=== PATIENT | male | born 1975 | race Caucasian/White ===

== ENCOUNTER 2024-08-16 03:41 | Emergency (ER) | payer BC ==
--- OUTSIDE RECORDS SUMMARY | 2024-08-16 03:45 | XMS REPORT | Continuity of Care Document ---
Author Name Unknown Address [address] [facility] [address] [place] [address] [facility] thconnect Address [address] [facility] [address] [place] [address] Care Team Providers Care Supervisor Data Processing Name Role Phone Micah Cha Attending Clinician Unavailable MEDARDO MERCADO Attending Clinician Unavailab GAMAL Rodriguez Attending Clinician Unavailable LAB90 Attending Clinician Unavailable YONG WOLF Attending Clinician Unavailable EDELMIRA SALGADO Attending Clinician Unavailab LIANET Peralta Attending Clinician Unav ailable RACHANA DAVIS Attending Clinician Unavailable CRYSTAL BLUE Attending Clinician Unava ilable Payers Payer Name Policy Type Policy Number Effective Date Expirati on Date Source BC 2 [id number] 2022 00:00:00 [facility] 6 [id number] 2022 00:00:00 [facility] Problems Condition Name Condition Details Condition Category Status Onset Date Resolution Date Last Treatment Date Treating Clinician Comments Source High 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 [facility]-Dr Bryson Meléndez - Externa jon Stage 3a chronic kidney disease Stage 3a chronic kidney disease Disease Active 2021-10 00:00: 00 Salena Salesold - Externa l Low serum alkaline phosphatas e Low serum alkaline phosphatas e Disease Active 2021-10 00:00: 00 Salena Salesold - Externa l Function kidney decreased Function kidney decreased Disease Active 2021-10 00:00: 00 Salena Salesold - Externa l Hypertrigl yceridemia Hypertrigl yceridemia Disease Active 2021-10 00:00: 00 Salena Salesold - Externa l Type 2 diabetes mellitus without complicati on, without long-term current use of insulin Type 2 diabetes mellitus without complicati on, without long-term current use of insulin Disease Active 2021-10 00:00: 00 Salena Salesold - Externa l Vitamin D deficiency Vitamin D deficiency Disease Active 2021-10 00:00: 00 Salena Seybold - Externa l Anxiety Anxiety Disease Active 2021-10 00:00: 00 Salena Salesold - Externa l GERD (gastroeso phageal reflux disease) GERD (gastroeso phageal reflux disease) Disease Active 2021-10 00:00: 00 Salena Seybold - Externa l DM type 2 with diabetic mixed hyperlipid emia (multi HCC) DM type 2 with diabetic mixed hyperlipid emia (multi HCC) Disease Active 2021-10 00:00: 00 Salena webb Anxiety disorder Anxiety disorder Disease Active 2021-10 00:00: 00 Salena Hoffa jon Mixed hyperlipid emia Mixed hyperlipid emia Disease Active 2021-10 00:00: 00 Salena Hoffa jon Gastroesop hageal reflux disease without esophagiti s Gastroesop hageal reflux disease without esophagiti s Disease Active 2021-10 00:00: 00 Salena Hoffa jon Long-term current use of testostero ne replacemen t therapy Long-term current use of testostero ne replacemen t therapy Disease Active 2021-10 00:00: 00 Salena webb [id number] Mild episode of recurrent major depressive disorder Problem [facility] [id number] Hand tingling Problem [facility] [id number] Hypogonadi sm in male Problem [facility] [id number] Essential hypertensi on Problem [facility] [id number] Type 2 diabetes mellitus with hyperglyce jason, without long-term current use of insulin Problem [facility] Social History Social Habit Start Date Stop Date Quantity Comments Source Gender identity 2022-10-15 08:11:47 Identifies as male gender (finding) Salena Meléndez - External Sexual orientation 2022-10-15 08:11:47 Heterosexual (finding) Salena Meléndez - External History of Tobacco Use [facility] Sex Assigned At [facility] Cigarettes smoked current (pack per day) - Reported 2024-02-18 00:00:00 2024-02-18 00:00:00 Salena Meléndez - External Cigarette pack-years 2024-02-18 00:00:00 2024-02-18 00:00:00 Salena Meléndez - External Alcoholic beverage intake 2024-02-18 00:00:00 2024-02-18 00:00:00 1.71 /d Salena Meléndez - External Tobacco use and exposure 2024-02-18 00:00:00 2024-02-18 00:00:00 Smokeless tobacco non-user Salena Meléndez - External Alcohol intake 2023-11-19 00:00:00 2023-11-19 00:00:00 1.71 /d Salena Meléndez - External History of Social function 2023-07-13 00:00:00 2023-07-13 00:00:00 Salena Meléndez - External Education 2023-07-13 00:00:00 2023-07-13 00:00:00 17 Salena Meléndez - External Alcohol Comment 2023-07-13 00:00:00 2023-07-13 00:00:00 moderately Salena Tomdion - External Smoking Status Start Date Stop Date Source Never Smoker [facility] Former Smoker 2024-03-24 00:00:00 2024-03-24 00:00:00 [facility] Medications Ordered Medication Name Filled Medication Name Start Date Stop Date Current Medication? Ordering Clinician Indication Dosage Frequency Signature (SIG) Comments Components Source Testosteron e Cypionate (DEPO-TESTO STERONE) 200 MG/ML intramuscul ar Solution 05-10 00:00: 00 Yes [id number] 100mg Inject 100 mg into the muscle every 21 days. Salena webb OZEMPIC (0.25 or 0.5 mg/dose) 2 mg/3 mL SQ Solution Pen-Injecto r 04-04 00:00: 00 Yes [id number] 3 .25mg Q1W Inject 0.25 mg into the skin once a week. Salena webb Carvedilol 6.25 MG Carvedilol 6.25 MG 03-24 00:00: 00 No 1{table t_with_ food} BID Carvedilol 6.25 MG Multiple Vitamins-Mi nerals (PreserVisi on AREDS 2) oral Capsule 03 09:02: 41 Yes 2{capsu le} QD Take 2 capsules by mouth daily. Salena webb Fenofibrate Micronized 200 MG oral Capsule 07 00:00: 00 Yes [id number] 200mg Take 1 capsule (200 mg total) by mouth daily. Salena webb Carvedilol 3.125 MG oral Tablet 01-13 00:00: 00 Yes [id number] 3.125mg Take 1 tablet (3.125 mg total) by mouth in the morning and 1 tablet (3.125 mg total) in the evening. Take with meals. Salena webb Multiple Vitamins-Mi nerals (PreserVisi on AREDS 2) oral Capsule 11-19 14:30: 47 Yes 2{capsu le} Take 2 capsules by mouth daily. Salena webb OZEMPIC (0.25 or 0.5 mg/dose) 2 mg/3 mL SQ Solution Pen-Injecto r 11-19 00:00: 00 Yes [id number] 3 .25mg Inject 0.25 mg into the skin once a week. Salena webb Multiple Vitamins-Mi nerals (PreserVisi on AREDS 2) oral Capsule 11-10 11:20: 12 Yes 2{capsu le} Take 2 capsules by mouth daily. Salena webb Testosteron e Cypionate (DEPO-TESTO STERONE) 200 MG/ML intramuscul ar Solution 11-10 00:00: 00 02-17 00:00 :00 No [id number] 100mg Inject 100 mg into the muscle every 14 days. Salena webb Lisinopril 40 MG oral Tablet 10-19 00:00: 00 Yes [id number] 40mg Take 1 tablet (40 mg total) by mouth daily. Salena webb Atorvastati n Calcium 80 MG oral Tablet 10-19 00:00: 00 Yes [id number] 80mg Take 1 tablet (80 mg total) by mouth daily. Salena webb Sertraline HCl 50 MG oral Tablet 10-19 00:00: 00 Yes [id number] 50mg Take 1 tablet (50 mg total) by mouth daily. Salena webb Metformin HCl ER 500 MG oral TABLET SR 24 HR 10-19 00:00: 00 Yes [id number] 3 500mg Take 1 tablet (500 mg total) by mouth daily (with breakfast) . Salena webb OZEMPIC (0.25 or 0.5 mg/dose) 2 mg/3 mL SQ Solution Pen-Injecto r 2022-10 00:00: 00 Yes [id number] 3 .5mg Inject 0.5 mg into the skin once a week. Salena webb Testosteron e Cypionate (DEPO-TESTO STERONE) 200 MG/ML intramuscul ar Solution 2022-10 00:00: 00 11-10 00:00 :00 No [id number] INJECT 100 MG (0.5 ML) INTO THE MUSCLE EVERY 14 DAYS. Salena webb Metformin HCl ER 500 MG oral TABLET SR 24 HR 2022-10 00:00: 00 Yes [id number] 3 500mg Take 1 tablet (500 mg total) by mouth daily (with breakfast) . Salena webb Magnesium 100 MG oral Tablet 2022-10 00:00: 00 Yes [id number] 1{tbl} Take 1 tablet by mouth daily. Salena webb Carvedilol (Coreg) 3.125 MG oral Tablet 2022-10 00:00: 00 Yes [id number] 3.125mg Take 1 tablet (3.125 mg total) by mouth in the morning and 1 tablet (3.125 mg total) in the evening. Take with meals. Salena webb [place]-3 Fatty Acids (Fish Oil) 1000 MG oral Capsule 2022-10 00:00: 00 Yes [id number] 3 1000mg Take 1 capsule (1,000 mg total) by mouth 2 times daily. Salena webb OZEMPIC (0.25 or 0.5 mg/dose) 2 mg/3 mL SQ Solution Pen-Injecto r 2022-10 017 00:00: 00 09-29 05:59 :00 No [id number] 3 .5mg Inject 0.5 mg into the skin once a week. Salena webb Multiple Vitamins-Mi nerals (PreserVisi on AREDS 2) oral Capsule 07-13 15:51: 47 Yes 2{capsu le} Take 2 capsules by mouth daily. Salena webb OZEMPIC (0.25 or 0.5 mg/dose) 2 mg/3 mL SQ Solution Pen-Injecto r -18 00:00: 00 08-31 05:59 :00 No [id number] 3 .5mg Inject 0.5 mg into the skin once a week. Salena webb Testosteron e Cypionate (DEPO-TESTO STERONE) 200 MG/ML intramuscul ar Solution -16 00:00: 00 Yes INJECT 100 MG (0.5 ML) INTO THE MUSCLE EVERY 14 DAYS Salena webb Testosteron e Cypionate 200 MG/ML injection Solution -13 00:00: 00 07-13 00:00 :00 No [id number] 101 100mg Inject 100 mg into the muscle every 14 days Salena webb Benzonatate (Tessalon Perles) 100 MG oral Capsule 05-04 00:00: 00 Yes [id number] 100mg [id number] 3D Take 1 capsule (100 mg total) by mouth 3 times daily as needed for cough Salena webb Guaifenesin (Mucinex) 600 MG oral Tablet 12 Hour Sustained Release 05-04 00:00: 00 Yes [id number] 1200mg Take 2 tablets (1,200 mg total) by mouth 2 times daily Salena webb OZEMPIC (0.25 or 0.5 mg/dose) 2 mg/3 mL SQ Solution Pen-Injecto r 6-30 00:00: 00 06-12 04:59 :00 No [id number] 3 .5mg Inject 0.5 mg into the skin once a week Salena webb Testosteron e Cypionate 200 MG/ML injection Solution 19 00:00: 00 Yes [id number] 101 100mg Inject 100 mg into the muscle every 14 days Salena webb OZEMPIC (0.25 or 0.5 mg/dose) 2 mg/3 mL SQ Solution Pen-Injecto r 19 00:00: 00 05-01 04:59 :00 No [id number] 3 .25mg Inject 0.25 mg into the skin once a week Salena webb Testosteron e Cypionate (DEPO-TESTO STERONE) 200 MG/ML intramuscul ar Solution 18 00:00: 00 03-05 00:00 :00 No [id number] 101 INJECT 1ML INTRAMUSCU LARLY DIRECTED EVERY 14 DAYS Salena webb Testosteron e Cypionate 200 MG/ML injection Solution -16 00:00: 00 Yes [id number] 101 200mg Inject 200 mg as directed every 14 days Salena webb Fenofibrate 160 MG oral Tablet 4-06 00:00: 00 Yes [id number] TAKE 1 TABLET BY MOUTH EVERY DAY Salena webb [place]-3 Fatty Acids 1000 MG oral Capsule 3-06 00:00: 00 07-13 00:00 :00 No [id number] 2000mg Take 2 capsules (2,000 mg total) by mouth 2 times daily Salena webb Sitagliptin Phosphate (Januvia) 100 MG oral Tablet 1-10 00:00: 00 03-05 00:00 :00 No [id number] 100mg Take 1 tablet (100 mg total) by mouth daily Salena webb OZEMPIC (0.25 or 0.5 mg/dose) 2 mg/1.5 mL SQ Solution Pen-Injecto r 1-10 00:00: 00 03-05 00:00 :00 No [id number] .25mg Inject 0.25 mg into the skin once a week Salena webb Vitamin D, Ergocalcife rol, 1.25 MG (29621 UT) oral Capsule 1-08 00:00: 00 07-13 00:00 :00 No [id number] 82423I Take 1 capsule (50,000 units total) by mouth once a week Salena webb Testosteron e Cypionate 200 MG/ML injection Solution 10-23 09:51: 13 10-23 00:00 :00 No [id number] 101 200mg Inject 200 mg as directed every 14 days Salena webb Lisinopril 40 MG oral Tablet 10-23 09:51: 13 10-23 00:00 :00 No [id number] 40mg Take 40 mg by mouth daily Salena webb Sitagliptin Phosphate 50 MG oral Tablet 10-23 09:51: 13 10-23 00:00 :00 No [id number] 100mg Take 100 mg by mouth daily Salena webb Atorvastati n Calcium 80 MG oral Tablet 10-23 09:51: 13 10-23 00:00 :00 No [id number] 80mg Take 80 mg by mouth daily Salena webb Sertraline HCl 50 MG oral Tablet 10-23 09:51: 13 10-23 00:00 :00 No [id number] 50mg Take 50 mg by mouth daily Salena webb Metformin HCl ER 500 MG oral TABLET SR 24 HR 10-23 09:51: 13 10-23 00:00 :00 No [id number] 1000mg Take 1,000 mg by mouth daily (with breakfast) Salena webb Fenofibrate 160 MG oral Tablet 10-23 00:00: 00 Yes [id number] 160mg Take 1 tablet (160 mg total) by mouth daily Salena webb Lisinopril 40 MG oral Tablet 10-23 00:00: 00 Yes [id number] 40mg Take 1 tablet (40 mg total) by mouth daily Salena webb Atorvastati n Calcium 80 MG oral Tablet 10-23 00:00: 00 Yes [id number] 80mg Take 1 tablet (80 mg total) by mouth daily Salena webb Sertraline HCl 50 MG oral Tablet 10-23 00:00: 00 Yes [id number] 50mg Take 1 tablet (50 mg total) by mouth daily Salena webb Esomeprazol e Magnesium 40 MG oral Delayed Release Capsule 10-23 00:00: 00 Yes [id number] 40mg Take 1 capsule (40 mg total) by mouth every morning (before breakfast) Salena webb Metformin HCl ER 500 MG oral TABLET SR 24 HR 10-23 00:00: 00 08-13 00:00 :00 No [id number] 1000mg Take 2 tablets (1,000 mg total) by mouth daily (with breakfast) Salena webb Testosteron e Cypionate 200 MG/ML injection Solution 10-23 00:00: 00 01-02 00:00 :00 No [id number] 101 200mg Inject 200 mg as directed every 14 days Salena webb Sitagliptin Phosphate 50 MG oral Tablet 10-23 00:00: 00 10-25 00:00 :00 No [id number] 100mg Take 2 tablets (100 mg total) by mouth daily Salena webb Esomeprazol e Magnesium 40 MG oral Delayed Release Capsule 2021-10 00:00: 00 10-23 00:00 :00 No [id number] TAKE 1 CAPSULE BY MOUTH EVERY MORNING (BEFORE BREAKFAST) . Salena webb Vitamin D, Ergocalcife rol, 1.25 MG (60359 UT) oral Capsule 2021-10 00:00: 00 Yes [id number] 03096L Take 1 capsule (50,000 units total) by mouth once a week Salena webb Fenofibrate 160 MG oral Tablet 2021-10 00:00: 00 10-23 00:00 :00 No [id number] 160mg Take 1 tablet (160 mg total) by mouth daily Salena webb Metformin HCl 500 MG/5ML oral Solution 2021-10 10:46: 39 08-14 00:00 :00 No Take by mouth 2 times daily (with meals) Salena webb Metformin HCl ER 500 MG oral TABLET SR 24 HR 2021-10 10:46: 11 Yes [id number] 1000mg Take 1,000 mg by mouth daily (with breakfast) Salena webb Esomeprazol e Magnesium 40 MG oral Pack 2021-10 10:44: 59 08-14 00:00 :00 No 40mg Take 40 mg by mouth every morning (before breakfast) Salena webb Testosteron e Cypionate 200 MG/ML injection Solution 2021-10 10:22: 21 Yes [id number] 101 200mg Inject 200 mg as directed every 14 days Salena webb Lisinopril 40 MG oral Tablet 2021-10 10:22: 21 Yes [id number] 40mg Take 40 mg by mouth daily Salena webb Cholecalcif gurdeep (Vitamin D-3) 125 MCG (5000 UT) oral Tablet 2021-10 10:22: 21 Yes [id number] Take by mouth Salena webb Sitagliptin Phosphate 50 MG oral Tablet 2021-10 10:22: 21 Yes [id number] 100mg Take 100 mg by mouth daily Salena webb Atorvastati n Calcium 80 MG oral Tablet 2021-10 10:22: 21 Yes [id number] 80mg Take 80 mg by mouth daily Salena webb Sertraline HCl 50 MG oral Tablet 2021-10 10:22: 21 Yes [id number] 50mg Take 50 mg by mouth daily Salena webb Esomeprazol e Magnesium 40 MG oral Pack 2021-10 00:00: 00 Yes [id number] 40mg Take 40 mg by mouth every morning (before breakfast) Salena webb metFORMIN HCl 500 MG metFORMIN HCl 500 MG No 1{table t_with_ a_meal} QD metFORMIN HCl 500 MG Omeprazole 40 MG Omeprazole 40 MG No QD Omeprazole 40 MG Folic Acid 1 MG Folic Acid 1 MG No 1{table t} QD Folic Acid 1 MG Sertraline HCl 50 MG Sertraline HCl 50 MG No 1{table t} QD Sertraline HCl 50 MG Ozempic (0.25 or 0.5 MG/DOSE) Ozempic (0.25 or 0.5 MG/DOSE) No Ozempic (0.25 or 0.5 MG/DOSE) Atorvastati n Calcium 80 MG Atorvastati n Calcium 80 MG No 1{table t} QD Atorvastat in Calcium 80 MG Fenofibrate 200 MG Fenofibrate 200 MG No 1{capsu le_with _a_meal } QD Fenofibrat e 200 MG Lisinopril 40 MG Lisinopril 40 MG No 1{table t} QD Lisinopril 40 MG Immunizations Ordered Immunization Name Filled Immunization Name Date Status Comments Source Tdap- (Boostrix, Adacel) Unknown Completed Salena Seybold - External Tdap- (Boostrix, Adacel) Unknown Completed Salena Seybold - External Tdap- (Boostrix, Adacel) Unknown Completed Salena Seybold - External Tdap- (Boostrix, Adacel) Unknown Completed Salena Seybold - External Tdap- (Boostrix, Adacel) Unknown Completed Salena Seybold - External Tdap- (Boostrix, Adacel) Unknown Completed Salena Seybold - External Vital Signs Vital Name Observation Time Observation Value Comments S ource height 2024-05-05 08:00:00 70 [in_i] Commo n [facility] weight 2024-05-05 08:00:00 193.4 [lb_av] Co mmon [facility] temperature 2024-05-05 08:00:00 97.7 [degF] Com mon [facility] bmi 2024-05-05 08:00:00 27.75 kg/m2 Comm on [facility] oximetry 2024-05-05 08:00:00 96 % Commo n [facility] respiratory rate 2024-05-05 08:00:00 16 /min [facility] blood pressure systolic 2024-05-05 08:00:00 125 mm[Hg] [facility] blood pressure diastolic 2024-05-05 08:00:00 64 mm[Hg] [facility] height 2024-03-24 15:00:00 70 [in_i] Commo n [facility] weight 2024-03-24 15:00:00 200.6 [lb_av] Co mmon [facility] temperature 2024-03-24 15:00:00 98.1 [degF] Com mon [facility] bmi 2024-03-24 15:00:00 28.78 kg/m2 Comm on [facility] oximetry 2024-03-24 15:00:00 95 % Commo n [facility] blood pressure systolic 2024-03-24 15:00:00 195 mm[Hg] Common [facility] blood pressure diastolic 2024-03-24 15:00:00 90 mm[Hg] [facility] Systolic blood pressure 2024-02-18 14:01:00 140 mm[Hg] Salena Seybo ld - External Diastolic blood pressure 2024-02-18 14:01:00 79 mm[Hg] Salena Seybo ld - External Heart rate 2024-02-18 14:01:00 94 /min Bernard Salesold - External Body temperature 2024-02-18 14:01:00 36.5 Cristina Salena ybold - External Respiratory rate 2024-02-18 14:01:00 15 /min Salena Tomybold - External Body height 2024-02-18 14:01:00 177.8 cm Laine mckeon Seybold - External Body weight 2024-02-18 14:01:00 90.266 kg Laine ey Seybold - External BMI 2024-02-18 14:01:00 28.55 kg/m2 Laine mckeon Seybold - External Oxygen saturation in Arterial blood by Pulse oximetry 2024-02-18 14:01:00 99 /min Salena Tomybo ld - External Systolic blood pressure 2023-11-19 21:06:00 135 mm[Hg] Salena Seybo ld - External Diastolic blood pressure 2023-11-19 21:06:00 80 mm[Hg] Salena Seybo ld - External Heart rate 2023-11-19 20:28:00 101 /min Kelse y Seybold - External Body temperature 2023-11-19 20:28:00 36.17 Cristina Salena Seybold - External Respiratory rate 2023-11-19 20:28:00 16 /min Salena Seybold - External Body height 2023-11-19 20:28:00 177.8 cm Laine ey Seybold - External Body weight 2023-11-19 20:28:00 89.359 kg Laine ey Seybold - External BMI 2023-11-19 20:28:00 28.27 kg/m2 Laine ey Seybold - External Oxygen saturation in Arterial blood by Pulse oximetry 2023-11-19 20:28:00 97 /min Salena Seybo ld - External Systolic blood pressure 2023-11-10 17:15:00 136 mm[Hg] Salena Seybo ld - External Diastolic blood pressure 2023-11-10 17:15:00 88 mm[Hg] Salena Seybo ld - External Heart rate 2023-11-10 17:15:00 106 /min Kelse y Seybold - External Body temperature 2023-11-10 17:15:00 37.28 Cristina Salena Seybold - External Respiratory rate 2023-11-10 17:15:00 17 /min Salena Seybold - External Body height 2023-11-10 17:15:00 177.8 cm Laine ey Seybold - External Body weight 2023-11-10 17:15:00 87.998 kg Laine ey Seybold - External BMI 2023-11-10 17:15:00 27.84 kg/m2 Laine ey Seybold - External Systolic blood pressure 2023-08-13 18:47:00 150 mm[Hg] Salena Seybo ld - External Diastolic blood pressure 2023-08-13 18:47:00 80 mm[Hg] Salena Seybo ld - External Heart rate 2023-08-13 18:33:00 95 /min Kelse y Seybold - External Body temperature 2023-08-13 18:33:00 37.06 Cristina Salena Seybold - External Respiratory rate 2023-08-13 18:33:00 15 /min Salena Seybold - External Body height 2023-08-13 18:33:00 177.8 cm Laine ey Seybold - External Body weight 2023-08-13 18:33:00 87.544 kg Laine ey Seybold - External BMI 2023-08-13 18:33:00 27.69 kg/m2 Laine ey Seybold - External Oxygen saturation in Arterial blood by Pulse oximetry 2023-08-13 18:33:00 99 /min Salena Seybo ld - External Systolic blood pressure 2023-07-13 21:08:00 145 mm[Hg] Salena Seybo ld - External Diastolic blood pressure 2023-07-13 21:08:00 86 mm[Hg] Salena Seybo ld - External Heart rate 2023-07-13 20:33:00 93 /min Kelse y Seybold - External Body temperature 2023-07-13 20:33:00 36.61 Cristina Salena Seybold - External Respiratory rate 2023-07-13 20:33:00 14 /min Salena Seybold - External Body height 2023-07-13 20:33:00 177.8 cm Laine ey Seybold - External Body weight 2023-07-13 20:33:00 90.719 kg Laine ey Seybold - External BMI 2023-07-13 20:33:00 28.70 kg/m2 Laine ey Seybold - External Systolic blood pressure 2023-03-05 13:01:00 124 mm[Hg] Salena Seybo ld - External Diastolic blood pressure 2023-03-05 13:01:00 82 mm[Hg] Salena Seybo ld - External Heart rate 2023-03-05 13:01:00 92 /min Kelse y Seybold - External Body temperature 2023-03-05 13:01:00 35.67 Cristina Salena Seybold - External Respiratory rate 2023-03-05 13:01:00 16 /min Salena Seybold - External Body height 2023-03-05 13:01:00 177.8 cm Laine ey Seybold - External Body weight 2023-03-05 13:01:00 93.441 kg Laine ey Seybold - External BMI 2023-03-05 13:01:00 29.56 kg/m2 Laine ey Seybold - External Oxygen saturation in Arterial blood by Pulse oximetry 2023-03-05 13:01:00 95 /min Salena Seybo ld - External Body height 2023-02-01 14:05:00 177.8 cm Laine ey Seybold - External Body weight 2023-02-01 14:05:00 92.534 kg Lanie ey Seybold - External BMI 2023-02-01 14:05:00 29.27 kg/m2 Laine ey Seybold - External Systolic blood pressure 2022-10-23 15:21:00 136 mm[Hg] Salena Seybo ld - External Diastolic blood pressure 2022-10-23 15:21:00 82 mm[Hg] Salena Seybo ld - External Heart rate 2022-10-23 15:21:00 80 /min Kelse y Seybold - External Body temperature 2022-10-23 15:21:00 36.72 Cristina Salena Seybold - External Respiratory rate 2022-10-23 15:21:00 14 /min Salena Seybold - External Body height 2022-10-23 15:21:00 177.8 cm Laine ey Seybold - External Body weight 2022-10-23 15:21:00 92.806 kg Laine ey Seybold - External BMI 2022-10-23 15:21:00 29.36 kg/m2 Laine ey Seybold - External Oxygen saturation in Arterial blood by Pulse oximetry 2022-10-23 15:21:00 99 /min Salena Seybo ld - External Systolic blood pressure 2022-08-14 15:11:00 171 mm[Hg] Salena Seybo ld - External Diastolic blood pressure 2022-08-14 15:11:00 94 mm[Hg] Salena Seybo ld - External Heart rate 2022-08-14 15:11:00 107 /min Kelse y Seybold - External Body temperature 2022-08-14 15:11:00 37 Cristina Salena Seybold - External Respiratory rate 2022-08-14 15:11:00 16 /min Salena Seybold - External Body height 2022-08-14 15:11:00 177.8 cm Laine ey Seybold - External Body weight 2022-08-14 15:11:00 91.627 kg Laine Meléndez - External BMI 2022-08-14 15:11:00 28.98 kg/m2 Liane mike Salesstephanie - External Procedures Procedure Date / Time Performed Performing Clinicia n Source FOOT WEIGHT BEARING LEFT 3 V 2023-02-01 14:33:45 Lianet Cooper Salena Salesstephanie - External Encounters Start Date/Time End Date/Time Encounter Type Admission Type Attending [facility] Care Department Encounter ID Source 2024-03-24 14:56:00 Outpatient Micah Cha [facility] [id number] [facility] 2024-11-13 14:30:00 2024-11-13 14:30:00 Outpatient MEDARDO MERCADO [id number] [facility] 2024-08-18 09:00:00 2024-08-18 09:00:00 Outpatient GAMAL MCDONALD [id number] [facility] 2024-08-15 00:00:00 2024-08-15 00:00:00 Outpatient GAMAL MCDONALD [id number] [facility] 2024-08-09 00:00:00 2024-08-09 00:00:00 Outpatient GAMAL MCDONALD [id number] [facility] 2024-06-07 00:00:00 2024-06-07 00:00:00 Outpatient GAMAL MCDONALD [id number] [facility] 2024-06-02 00:00:00 2024-06-02 00:00:00 Outpatient GAMAL MCDONALD [id number] [facility] 2024-05-12 00:00:00 2024-05-12 00:00:00 (TEL) [facility] [id number] Jeff [facility] 2024-05-10 08:45:00 2024-05-10 08:45:00 Outpatient MEDARDO MERCADO [id number] [facility] 2024-05-05 00:00:00 2024-05-05 00:00:00 OFFICE VISIT ESTAB PT LEVEL 4 STLMLC STLMLC [id number] [facility] 2024-04-03 00:00:00 2024-04-03 00:00:00 Outpatient PREGATOGAMAL Desai SALENA GIBBONS [id number] [facility] 2024-03-24 00:00:00 2024-03-24 00:00:00 OFFICE VISIT NEW PT LEVEL 4 STLMLC STLMLC [id number] [facility] 2024-03-11 00:00:00 2024-03-11 00:00:00 Outpatient MEDARDO MERCADO [id number] [facility] 2024-02-25 00:00:00 2024-02-25 00:00:00 Outpatient PREZASGAMAL [id number] [facility] 2024-02-18 09:30:00 2024-02-18 09:30:00 Outpatient LOGAN GIBBONS [id number] [facility] 2024-02-18 09:00:00 2024-02-18 09:00:00 [facility] [id number] [facility] 2024-01-23 00:00:00 2024-01-23 00:00:00 Outpatient YONG WOLF [id number] [facility] 2024-01-14 00:00:00 2024-01-14 00:00:00 Outpatient PREZASGAMAL [id number] [facility] 2023-12-17 00:00:00 2023-12-17 00:00:00 Outpatient PREZASGAMAL [id number] [facility] 2023-11-28 00:00:00 2023-11-28 00:00:00 Outpatient MEDARDO MERCADO [id number] [facility] 2023-11-21 00:00:00 2023-11-21 00:00:00 Outpatient GAMAL MCDONALD [id number] [facility] 2023-11-19 14:30:00 2023-11-19 14:30:00 Outpatient PREZAS, GAMAL GIBBONS SALENA [id number] [facility]ena [facility] 2023-11-16 00:00:00 2023-11-16 00:00:00 Outpatient PREZAS, GAMAL GIBBONS [place] [id number] [facility] 2023-11-15 00:00:00 2023-11-15 00:00:00 Outpatient PREZAS, GAMAL GIBBONS [place] [id number] Salena [facility] 2023-11-12 10:15:00 2023-11-12 10:15:00 Outpatient PREZAS, GAMAL SALENA GIBBONS [id number] Salena [facility] 2023-11-12 08:10:00 2023-11-12 08:10:00 Outpatient LOGAN SALENA GIBBONS [id number] [facility] 2023-11-10 11:30:00 2023-11-10 11:30:00 Outpatient MEDARDO MERCADO [id number] [facility] 2023-10-18 00:00:00 2023-10-18 00:00:00 Outpatient PREZAS, GAMAL SALENA GIBBONS [id number] Salena Seybold 2023-10-18 00:00:00 2023-10-18 00:00:00 Outpatient MARYANN YONG GIBBONS [id number] Salena Seybold 2023-10-18 00:00:00 2023-10-18 00:00:00 Outpatient HUNDL, YONG GIBBONS [id number] Salena Seybold 2023-10-12 00:00:00 2023-10-12 00:00:00 Outpatient PREZAS, GAMAL SALENA GIBBONS [id number] Salena Seybold 2023-10-04 00:00:00 2023-10-04 00:00:00 Outpatient PREZAS, GAMAL SALENA GIBBONS [id number] Salena Seybold 2023-09-13 00:00:00 2023-09-13 00:00:00 Outpatient PREZAS, GAMALZACK GIBBONS [id number] Salena Seybold 2023-09-11 00:00:00 2023-09-11 00:00:00 Outpatient PREZAS, GAMAL GIBBONS [facility] [id number] [facility] 2023-09-03 10:00:00 2023-09-03 10:00:00 Outpatient SALENA SALENA [id number] [facility] 2023-08-30 00:00:00 2023-08-30 00:00:00 Outpatient MARYANN, YONG GIBBONS [id number] [facility] 2023-08-23 00:00:00 2023-08-23 00:00:00 Outpatient PREZAS, GAMAL GIBBONS [facility] [id number] [facility] 2023-08-13 13:45:00 2023-08-13 13:45:00 Outpatient PREZAS, GAMAL GIBBONS [facility] [id number] [facility] 2023-08-01 00:00:00 2023-08-01 00:00:00 Outpatient PREZAS, GAMAL [facility] [id number] [facility]23-07-30 08:50:00 2023-07-30 08:50:00 Outpatient LAB90 SALENA SALENA [id number] [facility] 2023-07-29 00:00:00 2023-07-29 00:00:00 Outpatient HUNDL, YONG [facility] [id number] [facility] 2023-07-22 00:00:00 2023-07-22 00:00:00 Outpatient PREZAS, GAMAL [facility]IBBONS [id number] [facility] 2023-07-13 15:45:00 2023-07-13 15:45:00 Outpatient PREZAS, GAMAL SALENA GIBBONS [id number] [facility] 2023-06-30 00:00:00 2023-06-30 00:00:00 Outpatient MARYANN, YONG GIBBONS [id number] [facility] 2023-06-18 08:40:00 2023-06-18 08:40:00 Outpatient LAB90 SALENA GIBBONS [id number] [facility] 2023-06-11 08:30:00 2023-06-11 08:30:00 Outpatient PREZASGAMAL SALENA GIBBONS [id number] Salena [facility] 2023-06-03 00:00:00 2023-06-03 00:00:00 Outpatient HUNDL, YONG GIBBONS [id number] Salena [facility] 2023-05-29 00:00:00 2023-05-29 00:00:00 Outpatient HUNDL, YONG GIBBONS [id number] [facility]ena [facility] 2023-05-27 00:00:00 2023-05-27 00:00:00 Outpatient HUNDJon, YONG GIBBONS [id number] [facility]ena [facility] 2023-05-04 08:00:00 2023-05-04 08:00:00 Outpatient EDELMIRA SALGADO SALENA GIBBONS [id number] [facility] 2023-04-21 00:00:00 2023-04-21 00:00:00 Outpatient HUNDJon, YONG GIBBONS [id number] [facility] 2023-04-13 14:00:00 2023-04-13 14:00:00 Outpatient SALENA GIBBONS [id number] Salena ybste[facility]ie 2023-04-13 00:00:00 2023-04-13 00:00:00 Outpatient HUNDL, YONG GIBBONS [id number] [facility] 2023-03-23 16:00:00 2023-03-23 16:00:00 Outpatient SALENA GIBBONS [id number] [facility] 2023-03-17 00:00:00 2023-03-17 00:00:00 Outpatient HUNDJon, YONG GIBBONS [id number] [facility] 2023-03-10 00:00:00 2023-03-10 00:00:00 Outpatient HUNDL, YONG GIBBONS [id number] Salena [facility] 2023-03-05 08:45:00 2023-03-05 08:45:00 Outpatient LOGAN GIBBONS [id number] Salena [facility] 2023-03-05 08:00:00 2023-03-05 08:00:00 Outpatient HUNDJon, YONG GIBBONS [id number] Salena [facility] 2023-03-04 00:00:00 2023-03-04 00:00:00 Outpatient HUNDL, YONG GIBBONS [id number] Salena Meléndez 2023-03-03 00:00:00 2023-03-03 00:00:00 Outpatient HUNDL, YONG GIBBONS [id number] Salena ybstephanie 2023-02-06 00:00:00 2023-02-06 00:00:00 Outpatient HUNDL, YONG GIBBONS [id number] Salena Tomste[facility]ie 2023-02-01 09:50:00 2023-02-01 09:50:00 Outpatient ALADE, RADHAO SALENA GIBBONS [id number] Salena ybstephanie 2023-02-01 09:25:00 2023-02-01 09:25:00 Outpatient SALENA GIBBONS [id number] [facility] 2023-01-31 00:00:00 2023-01-31 00:00:00 Outpatient HUNDL, YONG GBIBONS [id number] [facility] 2023-01-25 09:10:00 2023-01-25 09:10:00 Outpatient ALADE, DIONIADAPO SALENA GIBBONS [id number] [facility] 2023-01-21 00:00:00 2023-01-21 00:00:00 Outpatient HUNDL, YONG GIBBONS [id number] [facility] 2023-01-04 08:40:00 2023-01-04 08:40:00 Outpatient RACHANA DAVIS [id number] [facility] 2023-01-02 00:00:00 2023-01-02 00:00:00 Outpatient HUNDL, YONG GIBBONS [id number] Salena Seybold 2022-12-21 00:00:00 2022-12-21 00:00:00 Outpatient HUNDL, YONG GIBBONS [id number] Salena Seybold 2022-12-18 09:40:00 2022-12-18 09:40:00 Outpatient LAB90 SALENA GIBBONS [id number] [facility] 2022-12-11 12:10:00 2022-12-11 12:10:00 Outpatient LABRosa SALENA GIBBONS [id number] Salena Meléndez 2022-11-27 10:15:00 2022-11-27 10:15:00 Outpatient CRYSTAL BLUE SALENA GIBBONS [id number] Salena Meléndez 2022-11-03 00:00:00 2022-11-03 00:00:00 Outpatient YONG WOLF SALENA GIBBONS [id number] Salena Meléndez 2022-10-26 00:00:00 2022-10-26 00:00:00 Outpatient MARYANN, YONG SALENA GIBBONS [id number] Salena Meléndez 2022-10-25 00:00:00 2022-10-25 00:00:00 Outpatient MARYANN, YONG SALENA GIBBONS [id number] Salena Meléndez 2022-10-23 13:45:00 2022-10-23 13:45:00 Outpatient LABRosa SALENA GIBBONS [id number] Salena Meléndez 2022-10-23 09:30:00 2022-10-23 09:30:00 Outpatient MARYANN, YONG SALENA GIBBONS [id number] Salena Tomstephanie 2022-08-18 00:00:00 2022-08-18 00:00:00 Outpatient MARYANN, YONG SALENA GIBBONS [id number] [facility] 2022-08-17 00:00:00 2022-08-17 00:00:00 Outpatient MARYANN YONG SALENA GIBBONS [id number] Salena jose gstephanie 2022-08-14 11:15:00 2022-08-14 11:15:00 Outpatient LABoRsa SALENA GIBBONS [id number] [facility] 2022-08-14 10:30:00 2022-08-14 10:30:00 Outpatient MARYANN YONG SALENA GIBBONS [id number] [facility] Notes Date/Time Note Provider Source 2023-11-19 14:31:18 Chief Complaint Patient presents with Follow-up 3 month f/u DM Rena Larsen LVN [facility] 2023-11-10 11:15:51 Chief Complaint Patient presents with Consultation Low testosterone Teresita Melara CMA II [facility]
[2024-08-16] MEDS ORDERED: KETOROLAC 30 MG/ML INJ ONE (04:21)
[2024-08-16] MEDS ORDERED: METOCLOPRAMIDE 10 MG/2mL INJ ONE (04:21)
[2024-08-16] MEDS ORDERED: DIPHENHYDRAMINE 50 MG/ML VIAL ONE (04:21)
[2024-08-16] MEDS ORDERED: NA CHLORIDE 0.9% 500 ML ONE (04:22)
[2024-08-16 04:55] LABS: Absolute Eosinophils 0.1 K/uL (0-0.5); Absolute Lymphocytes (CBC) 1.3 K/uL (0.7-4.9); Absolute Monocytes 0.4 K/uL (0.1-1.3); Absolute Neutrophil 2.9 K/uL (1.8-8.0); Basophils % 0.7 % (0-1.3); Eosinophils % 2.2 % (0-4.4); Hematocrit 40.5 % (39.6-49.0); Hemoglobin 13.8 g/dL (13.6-17.9); Lymphocytes % 27.3 % (15.3-44.8); MCH 32.8 pg (27.0-35.0); MCHC 34.1 g/dL (32.0-36.0); MCV 96.1 fL (80-100); MPV 8.4 fL (7.6-11.3); Monocytes % 8.2 % (3.3-12.3); Neutrophils % 61.6 % (41.7-73.7); Nucleated Red Blood Cells % 0.4 % (0-0); Platelets 246 thou/uL (152-406); RBC Red Blood Cell Count 4.21 M/uL (4.33-5.43)
[2024-08-16 04:59] LABS: Anion Gap 13.2 mEq/L (5.0-15.0); Potassium 3.2 mEq/L (3.5-5.1); Troponin High Sensitivity 22.5 pg/mL (<58.9)
--- NOTE | 2024-08-16 06:00 | EDPHYS ---
Physician Documentation [facility] Name: Poncho Lind Age: 48 yrs Sex: Male : 1975 Arrival Date: 08/16/2024 Time: 03:41 Bed 4 Private MD: ED Physician Toan Hooper HPI: 08/16 03:59 This 48 yrs old Male presents to ER via Unassigned with complaints of High ec2 Blood Pressure, Headache. 03:59 Patient arrives today for evaluation of a headache. Patient planing of a headache that ec2 he describes as pressure. Patient reports taking some ibuprofen with minimal alleviation in symptoms. No nausea or vomiting, no diarrhea, no head strike. Patient reports also elevated blood pressures, states that he takes carvedilol and lisinopril. No recent medication changes and reports medication compliance.. Historical: - Allergies: 04:17 No Known Allergies; dd2 - PMHx: 04:17 Diabetes mellitus; Hypertensive disorder; HYPERLIPIDEMIA; dd2 - PSHx: 04:17 None; dd2 - Immunization history:: Adult Immunizations up to date, Client reports having NOT received the Covid vaccine. - Infectious Disease History:: Denies. - Social history:: Smoking status: Patient denies any tobacco usage or history of. ROS: 03:59 Constitutional: as per hpi ec2 Exam: 03:59 Constitutional: GEN: NAD Head: atraumatic Eyes: EOMI Ears: External ears are ec2 normal. CV: regular rate LUNGS: no respiratory distress ABD: non-distended SKIN: no evidence of rashes MSK: no evidence of trauma. Neuro: Cranial nerves II through XII intact, strength intact all 4 extremities. Vital Signs: 04:15 BP 195 / 125; Pulse 89; Resp 17; Temp 98.6; Pulse Ox 96% on R/A; Weight 89.81 kg; dd2 Height 5 ft. 10 in. ; Pain 8/10; 04:40 BP 175 / 98; Pulse 77; Resp 18; Temp 98.6; Pulse Ox 94% ; bm8 05:34 BP 152 / 96; Pulse 83; Resp 17; Temp 98.6; Pulse Ox 95% ; Pain 0/10; bm8 04:15 Body Mass Index 28.41 (89.81 kg, 177.8 cm) dd2 04:15 Pain Scale: Adult dd2 05:34 Pain Scale: Adult bm8 Aixa Coma Score: 04:22 Eye Response: spontaneous(4). Motor Response: obeys commands(6). Verbal Response: dd2 oriented(5). Total: 15. 05:34 Eye Response: spontaneous(4). Motor Response: obeys commands(6). Verbal Response: bm8 oriented(5). Total: 15. MDM: 03:58 Medical Screening Exam initiated ec2 04:00 Data reviewed: vital signs. ED course: Patient arrives today for evaluation of a ec2 headache. Examination remarkable for well-appearing nontoxic neuro intact individuals otherwise in no acute distress with a reassuring examination. Will obtain lab work, EKG, CT imaging. Differential includes anemia, electrolyte disturbances, intracranial brain bleed. Evaluating for endorgan dysfunction.. 04:23 ED course: EKG independently reviewed and interpreted by me, shows normal sinus rhythm, ec2 rate of 79, no acute ST segment ovation's, intervals are nonactionable.. 05:08 ED course: Metabolic profile shows slight hypokalemia. CBC is reassuring. Troponin is ec2 within normal ranges. . 05:54 ED course: On reassessment patient with marked improvement in symptoms. Will discharge ec2 home, patient to follow-up with primary care to further manage patient's high blood pressure.. 08/16 03:59 Order name: Basic Metabolic Panel; Complete Time: 05:08 ec2 08/16 03:59 Order name: CBC with Diff; Complete Time: 05:08 ec2 08/16 03:59 Order name: Troponin HS; Complete Time: 05:08 ec2 08/16 03:59 Order name: CT Head Brain wo Cont ec2 08/16 03:59 Order name: EKG; Complete Time: 03:59 ec2 08/16 03:59 Order name: Cardiac monitoring; Complete Time: 04:26 ec2 08/16 03:59 Order name: EKG - Nurse/Tech; Complete Time: 04:26 ec2 08/16 03:59 Order name: IV Saline Lock; Complete Time: 04:26 ec2 08/16 03:59 Order name: Labs collected and sent; Complete Time: 04:26 ec2 08/16 03:59 Order name: O2 Per Protocol; Complete Time: 04:26 ec2 08/16 03:59 Order name: O2 Sat Monitoring; Complete Time: : ec2 Administered Medications: 04:29 Drug: NS 0.9% IV 500 ml 500 ml IV at 1 bolus once; to be given as a bolus over 30 bm8 minutes Volume: 500 ml; Route: IV; Rate: 1 bolus; Site: right antecubital; 05:35 Follow up: Response: No adverse reaction; IV Status: Completed infusion; IV Intake: bm8 500ml 04:29 Drug: Ketorolac IVP 15 mg IVP once Route: IVP; Site: right antecubital; bm8 05:35 Follow up: Response: No adverse reaction bm8 04:29 Drug: metoCLOPramide IVP 10 mg IVP once; over 1 to 2 minutes Route: IVP; Site: right bm8 antecubital; 05:35 Follow up: Response: No adverse reaction bm8 04:29 Drug: diphenhydrAMINE IVP 25 mg IVP once Route: IVP; Site: right antecubital; bm8 05:35 Follow up: Response: No adverse reaction bm8 Disposition Summary: 08/16/24 06:00 Discharge Ordered Notes: Location: Home ec2 Condition: Stable ec2 Diagnosis - Headache ec2 - Essential (primary) hypertension ec2 - Hypokalemia ec2 Followup: ec2 - With: Private Physician - When: - Reason: Re-evaluation by your physician Discharge Instructions: - Discharge Summary Sheet ec2 - General Headache Without Cause ec2 Forms: - Family Work Release ec2 - Medication Reconciliation Form ec2 - Antibiotic Education ec2 - Prescription Opioid Use ec2 - Patient Portal Instructions ec2 - Leadership Thank You Letter ec2 Prescriptions: - Compazine 10 mg Oral Tablet - take 1 tablet ORAL route every 8 hours As needed; 20 tablet; Refills: 0, ec2 Product Selection Permitted Signatures: Dispatcher [employer] Toan Umanzor MD MD ec2 Kale Barrera RN RN bm8 ELAINE PAINTER RN RN dd2
--- NOTE | 2024-08-16 06:00 | ER ---
Nurse's Notes [facility] Name: Poncho Lind Age: 48 yrs Sex: Male : 1975 Arrival Date: 08/16/2024 Time: 03:41 Bed 4 Private MD: Diagnosis: Headache;Essential (primary) hypertension;Hypokalemia Presentation: 08/16 04:15 Chief complaint: Patient states: PT STATES BLOOD PRESSURE ELEVATED X1 WEEK AND WOKE UP dd2 THIS MORNING WITH A HEADACHE. Coronavirus screen: At this time, the client does not indicate any symptoms associated with coronavirus-19. Ebola Screen: No symptoms or risks identified at this time. Initial Sepsis Screen: Does the patient meet any 2 criteria? No. Patient's initial sepsis screen is negative. Does the patient have a suspected source of infection? No. Patient's initial sepsis screen is negative. Risk Assessment: Do you want to hurt yourself or someone else? Patient reports no desire to harm self or others. Onset of symptoms is unknown. 04:15 Method Of Arrival: Ambulatory dd2 04:15 Acuity: TAMERA 3 dd2 Triage Assessment: 04:17 Headache History: Denies prior headaches. General: Appears in no apparent distress. dd2 Behavior is calm, cooperative, appropriate for age. Pain: Complains of pain in HEAD Pain currently is 8 out of 10 on a pain scale. Pain began 2 hours ago. Also complains of ELEVATED BP. EENT: No deficits noted. No signs and/or symptoms were reported regarding the EENT system. Neuro: Level of Consciousness is awake, alert, obeys commands, Oriented to person, place, time, situation, Appropriate for age Supervisor Power Reactor are equal bilaterally Moves all extremities. Full function Gait is steady, Speech is normal, Facial symmetry appears normal, Pupils are PERRLA, Pupil Size: 3 Intact. Cardiovascular: Heart tones S1 S2 present Patient's skin is warm and dry. Respiratory: Airway is patent Respiratory effort is even, unlabored, Respiratory pattern is regular, symmetrical, Breath sounds are clear bilaterally. GI: No deficits noted. No signs and/or symptoms were reported involving the gastrointestinal system. Abdomen is non-distended. : No deficits noted. No signs and/or symptoms were reported regarding the genitourinary system. Derm: No deficits noted. No signs and/or symptoms reported regarding the dermatologic system. Musculoskeletal: No deficits noted. No signs and/or symptoms reported regarding the musculoskeletal system. Circulation, motion, and sensation intact. Range of motion: intact in all extremities. Historical: - Allergies: 04:17 No Known Allergies; dd2 - PMHx: 04:17 Diabetes mellitus; Hypertensive disorder; HYPERLIPIDEMIA; dd2 - PSHx: 04:17 None; dd2 - Immunization history:: Adult Immunizations up to date, Client reports having NOT received the Covid vaccine. - Infectious Disease History:: Denies. - Social history:: Smoking status: Patient denies any tobacco usage or history of. Screenin:22 [facility] ED Fall Risk Assessment (Adult) History of falling in the last 3 months, dd2 including since admission No falls in past 3 months (0 pts) Confusion or Disorientation No (0 pts) Intoxicated or Sedated No (0 pts) Impaired Gait No (0 pts) Mobility Assist Device Used No (0 pt) Altered Elimination No (0 pt) Score/Fall Risk Level 0 - 2 = Low Risk Oriented to surroundings, Maintained a safe environment, Educated pt \T\ family on fall prevention, incl call for assistance when getting out of bed, Assessed \T\ reinforced patient's understanding of fall precautions, Hourly rounding (assess needs \T\ fall precautionary measures) done. Abuse screen: Denies threats or abuse. Nutritional screening: No deficits noted. Tuberculosis screening: No symptoms or risk factors identified. Assessment: 04:22 Reassessment: SEE TRIAGE ASSESSMENT FOR FULL ASSESSMENT. dd2 05:34 Reassessment: Patient appears in no apparent distress at this time. Patient and/or bm8 family updated on plan of care and expected duration. Pain level reassessed. Patient is alert, oriented x 3, equal unlabored respirations, skin warm/dry/pink. Patient denies pain at this time. Patient states feeling better. Patient states symptoms have improved. Pain: Denies pain. Vital Signs: 04:15 BP 195 / 125; Pulse 89; Resp 17; Temp 98.6; Pulse Ox 96% on R/A; Weight 89.81 kg; dd2 Height 5 ft. 10 in. ; Pain 8/10; 04:40 BP 175 / 98; Pulse 77; Resp 18; Temp 98.6; Pulse Ox 94% ; bm8 05:34 BP 152 / 96; Pulse 83; Resp 17; Temp 98.6; Pulse Ox 95% ; Pain 0/10; bm8 04:15 Body Mass Index 28.41 (89.81 kg, 177.8 cm) dd2 04:15 Pain Scale: Adult dd2 05:34 Pain Scale: Adult bm8 Aixa Coma Score: 04:22 Eye Response: spontaneous(4). Motor Response: obeys commands(6). Verbal Response: dd2 oriented(5). Total: 15. 05:34 Eye Response: spontaneous(4). Motor Response: obeys commands(6). Verbal Response: bm8 oriented(5). Total: 15. ED Course: 03:45 Patient arrived in ED. gm2 03:46 Toan Hooper MD is Attending Physician. ec2 04:11 Kale Barrera, RN is Primary Nurse. bm8 04:17 Triage completed. dd2 04:17 Arm band placed on right wrist. Patient placed in an exam room, on a stretcher, on dd2 pulse oximetry. 04:22 Patient has correct armband on for positive identification. Bed in low position. Call dd2 light in reach. Provided Education on: CALL LIGHT, MEDICATIONS, LAB, RESULT TIMES. Client placed on continuous cardiac and pulse oximetry monitoring. NIBP monitoring applied. Door closed. Noise minimized. Verbal reassurance given. 04:22 No provider procedures requiring assistance completed. Initial lab(s) drawn, by ED dd2 staff, sent to lab. EKG done, by ED staff, reviewed by Toan Hooper MD. Inserted saline lock: 20 gauge in right antecubital area, using aseptic technique. Blood collected. Flushed with 10 mL NS. Patient maintains SpO2 saturation greater than 95% on room air. 04:37 CT Head Brain wo Cont In Process Unspecified. EDMS 06:07 IV discontinued, intact, bleeding controlled, No redness/swelling at site. Pressure dd2 dressing applied. Administered Medications: 04:29 Drug: NS 0.9% IV 500 ml 500 ml IV at 1 bolus once; to be given as a bolus over 30 bm8 minutes Volume: 500 ml; Route: IV; Rate: 1 bolus; Site: right antecubital; 05:35 Follow up: Response: No adverse reaction; IV Status: Completed infusion; IV Intake: bm8 500ml 04:29 Drug: Ketorolac IVP 15 mg IVP once Route: IVP; Site: right antecubital; bm8 05:35 Follow up: Response: No adverse reaction bm8 04:29 Drug: metoCLOPramide IVP 10 mg IVP once; over 1 to 2 minutes Route: IVP; Site: right bm8 antecubital; 05:35 Follow up: Response: No adverse reaction bm8 04:29 Drug: diphenhydrAMINE IVP 25 mg IVP once Route: IVP; Site: right antecubital; bm8 05:35 Follow up: Response: No adverse reaction bm8 Medication: 04:22 VIS not applicable for this client. dd2 Intake: 05:35 IV: 500ml; Total: 500ml. bm8 Outcome: 06:00 Discharge ordered by . ec2 06:07 Discharged to home ambulatory, dd2 06:07 Condition: stable 06:07 Discharge instructions given to patient, significant other, Instructed on discharge instructions, follow up and referral plans. medication usage, Demonstrated understanding of instructions, follow-up care, medications, Prescriptions given X 1, 06:07 Patient left the ED. dd2 Signatures: Dispatcher [employer] EDToan Solano MD MD ec2 Teresita Courtney gm2 Kale Barrera RN RN bm8 ELAINE PAINTER RN RN dd2
[2024-08-16 06:12] VITALS: TEMP 98.6
[2024-08-16 06:14] VITALS: BP 152/96; O2SAT 95
--- NOTE | 2024-08-16 07:15 | RAD REPORT ---
EXAM: CT Head Without Intravenous Contrast CLINICAL HISTORY: The patient is 48 years old and is Male; HEADACHE TECHNIQUE: Axial computed tomography images of the head/brain without intravenous contrast. Sagit michael and coronal reformatted images were created and reviewed. This CT exam was performed using one or more of the following dose reduction techniques: automated exposure control, adjustment of t he mA and/or kV according to patient size, and/or use of iterative reconstruction technique. COMPARISON: No relevant prior studies available. FINDINGS: Brain: Remote lacunar infarcts versus perivascular spaces in the left basal ganglia. Mild nonspecific white matter changes likely related to chronic microvascular ischemic diseas e. No hemorrhage. Ventricles: Unremarkable. No ventriculomegaly. Bones/joints: Unremarkable. No acute fracture. Soft tissues: Unremarkable. Sinuses: Unremarkable as visualized. Mastoid air cells: Unremarkable as visualized. No mastoid effusion. IMPRESSION: No acute intracranial abnormality. Electronically signed by: Bogdan Farley MD 08/16/2024 05:57 AM CDT RP 8 Due to temporary technical issues with the PACS/MyCoop reporting system, reports are being thien d by the in-house radiologist without review as a courtesy to ensure prompt reporting the interpreting radiologist is fully responsible for the content of the report. Transcribed Date/Time: 08/16/2024 7:15 AM
--- NOTE | 2024-08-16 14:47 | EKG ---
Test Date: 2024-08-16 Test Time: 04:20:04 Construction Analyst: STACIE MEASUREMENT RESULTS: Intervals: Rate: 79 OH: 124 QRSD: 86 QT: 414 QTc: 474 [place]: P: 80 OH: 124 QRS: -14 T: 10 INTERPRETIVE STATEMENTS: Normal sinus rhythm Nonspecific ST abnormality Abnormal ECG Compared to ECG 03/31/2024 12:07:49 No significant changes Electronically Signed On 08-16-24 14:45:30 CDT by Nathaniel Westfall
== END 2024-08-16 06:07 | disposition home or self-care (01) ==
LOC: ER 03:41
DX: R51.9 Headache, unspecified (principal); E87.6 Hypokalemia; I10 Essential (primary) hypertension; E11.9 Type 2 diabetes mellitus without complications; Z28.310 Unvaccinated for COVID-19
CPT/HCPCS: 93005; 85025; 80048; 36415; 84484; 70450; J2765; J1200; J7040; 96361; 96374; 96375; 99284